=== PATIENT | male | born 1980 | race Caucasian/White ===

== ENCOUNTER 2024-04-29 19:02 | Outpatient (RCR) | payer BC, SELFPAY | END 2024-04-29 23:59 | disposition home or self-care (01) | LOC: RPT 19:02 | PROVIDERS: ATTENDING PHYSICIAN Registered Nurse | DX: M54.2 Cervicalgia (principal); M43.6 Torticollis; Z73.6 Limitation of activities due to disability; W00.0XXD Fall on same level due to ice and snow, subsequent encounter; Y93.69 Activity, other involving other sports and athletics played as a team or group | CPT/HCPCS: 97110; 97162; 97535 ==

== ENCOUNTER 2024-05-13 18:58 | Outpatient (RCR) | payer BC, SELFPAY | END 2024-05-14 10:33 | disposition home or self-care (01) | LOC: RPT 18:58 | PROVIDERS: ATTENDING PHYSICIAN Registered Nurse | DX: M54.2 Cervicalgia (principal); Z73.6 Limitation of activities due to disability; W00.0XXD Fall on same level due to ice and snow, subsequent encounter; Y93.69 Activity, other involving other sports and athletics played as a team or group | CPT/HCPCS: 97110; 97535 ==

== ENCOUNTER 2024-11-15 06:29 | Day surgery (SDC) | payer BC, SELFPAY | END 2024-11-15 15:49 | disposition home or self-care (01) | LOC: GI 06:29 | PROVIDERS: ATTENDING PHYSICIAN Internal Medicine Gastroenterology | DX: Z12.11 Encounter for screening for malignant neoplasm of colon (principal); K64.0 First degree hemorrhoids; D12.0 Benign neoplasm of cecum | CPT/HCPCS: 45385; 88305 ==

== ENCOUNTER 2025-04-18 06:22 | Day surgery (SDC) | payer BC, SELFPAY | END 2025-04-18 13:47 | disposition home or self-care (01) | LOC: GI 06:22 | PROVIDERS: ATTENDING PHYSICIAN Internal Medicine Gastroenterology; FAMILY PHYSICIAN Registered Nurse | DX: K44.9 Diaphragmatic hernia without obstruction or gangrene (principal); K31.7 Polyp of stomach and duodenum; R12 Heartburn | CPT/HCPCS: 43239; 88305 ==